=== PATIENT | female | born 1970 | race Caucasian/White ===

== ENCOUNTER 2021-08-07 15:38 | Emergency (ER) | payer OTHER, SELFPAY ==
[2021-08-07 15:42] VITALS: BP 146/78; PULSE 113; RESP 16; TEMP 37.2; O2SAT 100
[2021-08-07 18:40] LABS: Basophils Percent Auto 0.3 % (0.2-1.2); Eosinophils Absolute Auto 0.2 K/mm3 (0-0.3); Eosinophils Percent Auto 1.6 % (0-4.4); Hematocrit 32.8 % (37.0-47.0); Hemoglobin 10.6 g/dL (12.0-15.0); Immature Granulocyte Absolute 0.04 K/mm3 (0.00-0.031); Immature Granulocyte Percent A 0.3 % (0-0.5); Lymphocytes Absolute Auto 1.81 K/mm3 (0.9-3.2); Lymphocytes Percent Auto 15.3 % (18.3-44.2); Mean Corpuscular HGB Conc 32.3 g/dl (32-36); Mean Corpuscular Hemoglobin 27.2 pg (26-34); Mean Corpuscular Volume 84.3 fl (80-100); Mean Platelet Volume 10.9 fl (7.4-10.4); Monocytes Absolute Auto 0.8 K/mm3 (0.1-0.6); Monocytes Percent Auto 6.8 % (2.6-8.5); Neutrophils Absolute Auto 8.9 K/mm3 (1.3-6.7); Neutrophils Percent Auto 75.7 % (45.5-73.1); Platelet Count Result 329 k/mm3 (150-375); Red Blood Count 3.89 M/mm3 (4.2-5.4); White Blood Count 11.8 K/mm3 (4.5-10.0)
[2021-08-07 18:50] LABS: Lactic Acid Reflex 1.2 mmol/L (0.7-2.1)
[2021-08-07 18:51] LABS: Alanine Aminotransferase 22 U/L (4-35); Albumin Level 3.8 g/dL (3.5-5.1); Alkaline Phosphatase 96 U/L (38-126); Anion Gap 11 mmol/L (8-16); Aspartate Amino Transferase 41 U/L (14-36); Bilirubin,Total 0.3 mg/dL (0.2-1.3); Blood Urea Nitrogen 13 mg/dL (7-17); Calcium 8.6 mg/dL (8.4-10.2); Carbon Dioxide 24 mmol/L (22-30); Chloride 103 mmol/L (98-107); Estimated CRCL calculation 130 ml/min; Estimated Glomerular Filt Rate > 60; Glucose 142 mg/dL (65-110); Potassium 3.5 mmol/L (3.4-5.0); Prothrombin Time 13.2 Seconds (11.1-14.7); Sodium 138 mmol/L (137-145)
[2021-08-07 18:52] LABS: Partial Thromboplastin Time 33.2 SECONDS (22.3-36.8)
[2021-08-07 18:58] LABS: NT Pro B Type Natriuretic Pept 124 pg/mL (5-100)
[2021-08-07 19:40] VITALS: BP 132/78; PULSE 71; RESP 17; O2SAT 100
--- NOTE | 2021-08-07 20:49 | ED.SKABFB ---
HPI - Skin/Abscess/Foreign Bdy General Chief complaint: Skin/Abscess/Foreign Body Stated complaint: infection on legs Time Seen by Provider: 08/07/21 18:02 History of Present Illness HPI narrative: Patient is a 51-year-old female who presents ER with concern for infection to her lower extremities. Reports her right leg has become red over the last couple weeks. She reports she has had sores on her legs since 04/2021. She has had waxing waning of edema and redness. 2 weeks ago she took 4 days worth of clindamycin that she got from a friend without improvement. She has had subjective fevers and chills. Related Data Home Medications Medication Instructions Recorded Confirmed buprenorphine-naloxone [Suboxone] 2 film SUBLINGUAL DAILY 08/07/21 08/07/21 ibuprofen [Advil] 400 mg PO Q6H PRN 08/07/21 08/07/21 Allergies Allergy/AdvReac Type Severity Reaction Status Date / Time No Known Allergies Allergy Verified 08/07/21 17:36 Review of Systems Review of Systems: All systems reviewed & are unremarkable except as noted in HPI and below Constitutional: Constitutional: Reports chills, Reports fever(s) and Denies weakness ENT: Denies nasal congestion and Denies sore throat Cardiovascular: Cardiovascular: Denies chest pain, Denies rapid heart rate and Denies radiating jaw, neck or arm pain Respiratory: Respiratory: Denies cough, Denies dyspnea and Denies wheezing Gastrointestinal: Gastrointestinal: Denies abdominal pain, Denies nausea and Denies vomiting Integumentary/Breasts: Skin/Breast: Reports erythema, Reports rash and Reports skin ulcer Neurologic: Denies focal weakness and Denies numbness Exam Narrative: GENERAL: Well-appearing, well-nourished, and in no acute distress. HEAD: Normocephalic, atraumatic. ENT: Mucous membranes moist. CHEST: Clear to auscultation. No respiratory distress. HEART: Regular rate and rhythm. Normal peripheral pulses. ABDOMEN: Soft, nontender, nondistended. EXTREMITIES: Normal range of motion. 2+ edema bilateral lower extremities. SKIN: Warm, dry. Multiple ulcerated wounds to bilateral lower extremities with larger wounds right lateral calf and posterior calf. Right lower extremity demonstrates erythema extending up into the thigh. It is warm and mildly tender. NEURO: Alert and oriented x3. PSYCH: Normal mood and affect. Course Course Emergency Course: Patient felt to have some chronic wounds with secondary infection. Patient could potentially also have DVT. Will be given Lovenox and obtain ultrasound in the morning. IV cefazolin ordered as well as blood cultures. Reevaluation(s) Reevaluation #1: Patient no longer wants to be admitted to the hospital. I discussed with the patient the multiple benefits of being admitted for treatment and evaluation. Patient does not like the fact that she would be treated as COVID-positive since she will not take rapid COVID test for placement in a shared room. She does not like the strict visitor policy of the hospital. She has been informed that she could be risking from blood clot or infection and that disability and loss of leg or possibilities of no treatment. She understands this and has signed AMA paperwork. Date: 08/07/21 Time: 23:50 Vital Signs Vital signs: Vital Signs Temperature 98.9 F 08/07/21 15:42 Pulse Rate 113 H 08/07/21 15:42 Respiratory Rate 16 08/07/21 15:42 Blood Pressure 146/78 H 08/07/21 15:42 Pulse Oximetry 100 08/07/21 15:42 Temperature 98.9 F 08/07/21 15:42 Pulse Rate 101 H 08/07/21 23:14 Respiratory Rate 18 08/07/21 23:14 Blood Pressure 132/82 08/07/21 23:14 Pulse Oximetry 99 08/07/21 23:14 MDM - Skin/Abscess/Foreign Bdy Lab Data Result diagrams: 08/07/21 18:30 08/07/21 18:30 Labs: Lab Results 08/07/21 08/07/21 08/07/21 Range/Units 18:30 18:30 18:30 WBC 11.8 H (4.5-10.0) K/mm3 RBC 3.89 L (4.2-5.4) M/mm3 Hgb 10.6 L (12.0-15.0)
[2021-08-07] MEDS: ceFAZolin SODIUM 1 GM VIAL IV PUSH (21:07)
[2021-08-07] MEDS: WATER, STERILE FOR INJECTION 10 ML VIAL XX (21:07)
[2021-08-07 21:08] VITALS: BP 127/82; PULSE 69; RESP 18; O2SAT 97
[2021-08-07] MEDS: ENOXAPARIN 80 MG/0.8 ML SYRINGE 72 MG SUB-Q (21:38)
[2021-08-07 21:39] VITALS: BP 140/70; PULSE 101; RESP 18; O2SAT 100
[2021-08-07 22:37] LABS: Barbiturate Screen Urine Negative (Negative); Benzodiazepines Screen Urine Negative (Negative)
[2021-08-07 22:41] LABS: Cannabinoid Screen Urine Negative (Negative); Cocaine Screen Urine Negative (Negative); Methadone Screen Urine Negative (Negative); Opiate Screen Urine Negative (Negative); Phencyclidine Screen Urine Negative (Negative)
[2021-08-07 23:05] LABS: Amphetamine Screen Urine Positive (Negative)
[2021-08-07 23:14] VITALS: BP 132/82; PULSE 101; RESP 18; O2SAT 99
--- NOTE | 2021-08-07 23:14 | PC.NURSE ---
Pt declines COVID swab, states she does not want to be admitted due to visitor policy. Pt states wants to sign out AMA. EDP Dr Zhu at bedside.
--- NOTE | 2021-08-07 23:52 | PC.NURSE ---
Pt discussed visitor policy and declines to stay for admit. Discussed as a room and will not require COVID swab. Pt states she will go to another hospital that allows visitors. Pts wounds dressed by this RN. IV removed, signed AMA paper work. EDP made aware.
== END 2021-08-07 23:54 | disposition left against medical advice (07) ==
LOC: ANHED 18:02 → ANH3MEDSUR 08-08 00:20
PROVIDERS: Emergency Provider Emergency Medicine
DX: L97.219 Non-pressure chronic ulcer of right calf with unspecified severity (principal); L03.119 Cellulitis of unspecified part of limb
CPT/HCPCS: 36415; 80053; 80307; 83605; 83880; 85025; 85610; 85730; 87040; 96372; 96374; 99284; J0690; J1650

== ENCOUNTER 2022-07-16 06:34 | Emergency (ER) | payer OTHER, SELFPAY ==
[2022-07-16] VITALS (13 sets, daily range): BP systolic 113–121; BP diastolic 70–81; PULSE 68–107; RESP 14–22; TEMP 36.6–37.2; O2SAT 87–100
--- NOTE | ~2022-07-16 | XR_ITS ---
EXAMINATION: XR chest 2V DATE: 07/16/2022 07:03 INDICATION: 3 days of shortness of breath TECHNIQUE: PA and lateral views of the chest were obtained. COMPARISON: None FINDINGS: Mild bilateral infrahilar bronchial wall thickening. Symmetric bilateral nipple shadows project over the lung bases. No focal airspace opacities, pulmonary edema, pleural effusion or pneumothorax. The c ardiomediastinal silhouette is normal. Mild thoracic kyphosis with moderate spondylosis. IMPRESSION: 1. Mild infrahilar bronchial wall thickening without focal airspace opacities which could be due to b ronchitis or early/viral pneumonia, reactive airway disease/asthma or minimal pulmonary edema. Reviewed, dictated and finalized at location A. ED [employer] IMPRESSION: 1. Mild infrahilar bronchial wall thickening without focal airspace opacities w hich could be due to bronchitis or early/viral pneumonia, reactive airway disea se/asthma or minimal pulmonary edema.
--- NOTE | 2022-07-16 06:46 | ECG_ITS ---
Measurements Intervals [place] Rate: 77 P: 12 W[place]: 138 QRS: 4 QRSD: 74 T: 12 QT: 382 QTc: 434 Interpretive Statements SINUS RHYTHM BASELINE ARTIFACT NONSPECIFIC ST ABNORMALITY BORDERLINE ECG NO PREVIOUS ECG AVAILABLE FOR COMPARISON Electronically Signed On 07-17-2022 16:37:55 [employer] by Rafael Nicholas M.D.
--- NOTE | 2022-07-16 06:48 | ED.SOB ---
HPI - SOB/Dyspnea General Chief Complaint: Shortness of Breath/Dyspnea <Yair Cabral MD - Last Filed: 07/16/22 06:58> Stated Complaint: SOB <Yair Cabral MD - Last Filed: 07/16/22 06:58> Time Seen by Provider: 07/16/22 07:03 <Yair Cabral MD - Last Filed: 07/16/22 06:58> History of Present Illness HPI Narrative: This is a 52-year-old female with past medical history of COPD who presents to the emergency department complaining shortness of breath. She states for the past week she has had flulike symptoms with worsening shortness of breath for the last couple of days. This is accompanied by nonbloody cough. She denies abdominal pain, vomiting or chest pain. <Yair Cabral MD - Last Filed: 07/16/22 06:58> Related Data Home Medications: Home Medications Medication Instructions Recorded Confirmed buprenorphine 8 mg-naloxone 2 mg 2 film sublingual DAILY 08/07/21 08/07/21 sublingual film (Suboxone) ibuprofen 200 mg tablet (Advil) 400 mg PO Q6H PRN Pain 08/07/21 08/07/21 <Yair Cabral MD - Last Filed: 07/16/22 06:58> Allergies/Adverse Reactions: Allergies Allergy/AdvReac Type Severity Reaction Status Date / Time No Known Allergies Allergy Verified 08/07/21 17:36 <Yair Cabral MD - Last Filed: 07/16/22 06:58> Review of Systems Review of Systems: CONSTITUTIONAL: fevers and chills denies fever, chills, or sweats. EYES: Denies visual changes, redness, or discharge. ENT: Upper respiratory congestion and rhinorrhea denies congestion, sore throat, or otalgia. CARDIOVASCULAR: Denies chest pain, palpitations, or edema. RESPIRATORY: Nonbloody cough and dyspnea GASTROINTESTINAL: Denies abdominal pain, nausea, vomiting, or diarrhea. GENITOURINARY: Denies dysuria or hematuria. SKIN: Denies rash or itching. MUSCULOSKELETAL: Denies back pain, joint pain, or myalgia. NEUROLOGIC: Denies headache, numbness, dizziness, or weakness. PSYCHIATRIC: Denies anxiety or depression. <Yair Cabral MD - Last Filed: 07/16/22 06:58> PMFSH Past Medical History Medical History: Medical History (Updated 07/16/22 @ 06:58 by Yair Cabral MD) Appendicitis COPD (chronic obstructive pulmonary disease) Skin ulcer <Yair Cabral MD - Last Filed: 07/16/22 06:58> Surgical History Surgical History: Surgical History (Updated 07/16/22 @ 06:52 by Yair Cabral MD) History of appendectomy <Yair Cabral MD - Last Filed: 07/16/22 06:58> Social History Social History: Social History (Updated 07/16/22 @ 06:52 by Yair Cabral MD) Smoking status: Former smoker Smoking end date: 07/14/22 Alcohol intake: never Substance use: former Substance use type: former substance user and opiates <Yair Cabral MD - Last Filed: 07/16/22 06:58> Exam Narrative: GENERAL: Well-developed, well-nourished, appears fatigued HEAD: Normocephalic, atraumatic. EYES: PERRLA and EOMI. ENT: Poor dentition, nares clear, no rhinorrhea or epistaxis. Mucous membranes moist. Oropharynx without tonsillar hypertrophy exudate or other lesions. NECK: Supple. No adenopathy or masses. No carotid bruits or JVD CHEST: Expiratory wheeze in bilateral posterior lung givens. Intermittent cough with rhonchi. No respiratory distress. No rales HEART: Regular rate and rhythm. No murmur heard. Normal peripheral pulses. ABDOMEN: Soft, nontender, nondistended, normal active bowel sounds. EXTREMITIES: Normal range of motion. Patient refuses exam of lower extremities SKIN: Upper extremities are Warm, dry, no rash NEURO: No focal deficits. Alert and oriented x3. PSYCH: Normal mood and affect. <Yair Cabral MD - Last Filed: 07/16/22 06:58> Course Course Emergency Course: 07:00 - Patient signed out to oncoming physician, Dr. Mcdaniels pending labs and imaging. <Yair Cabral MD - Last Filed: 07/16/22 06:58> 07:00 - Marita
[2022-07-16] MEDS: ALBUTEROL SULFATE NEB 2.5 MG/3 ML INH 5 MG INHALATION (07:05)
[2022-07-16] MEDS: IPRATROPIUM BR 0.02% INH SOLN 0.5 MG/2.5 ML VIAL INHALATION ×3 (07:06→07:44)
[2022-07-16] MEDS: methylPREDNISolone SOD SUCC 125 MG VIAL IV PUSH (07:11)
[2022-07-16 07:17] LABS: Basophils Absolute Auto 0.03 K/mm3 (0.00-0.10); Basophils Percent Auto 0.4 % (0.0-1.0); Eosinophils Absolute Auto 0.38 K/mm3 (0.02-0.50); Eosinophils Percent Auto 5.3 % (1.0-6.0); Hematocrit 37.8 % (35.0-49.0); Hemoglobin 11.8 g/dL (12.0-15.0); Immature Granulocyte Absolute 0.02 K/mm3 (0.00-0.00); Immature Granulocyte Percent A 0.3 % (0.0-0.0); Lymphocytes Absolute Auto 1.65 K/mm3 (1.10-4.50); Lymphocytes Percent Auto 23.2 % (18.0-42.0); Mean Corpuscular HGB Conc 31.2 g/dL (32.0-36.0); Mean Corpuscular Hemoglobin 26.5 pg (27.0-31.0); Mean Corpuscular Volume 84.8 fL (78.0-102.0); Mean Platelet Volume 10.4 fl (9.2-11.8); Monocytes Absolute Auto 0.72 K/mm3 (0.10-0.90); Monocytes Percent Auto 10.1 % (2.0-11.0); Neutrophils Absolute Auto 4.3 K/mm3 (1.7-7.2); Neutrophils Percent Auto 60.7 % (50.0-70.0); Platelet Count Result 217 K/mm3 (150-420); Red Blood Count 4.46 M/mm3 (4.20-5.40); Red Cell Distribution Width 14.4 % (11.6-14.4); White Blood Count 7.1 K/mm3 (4.8-10.8)
[2022-07-16 07:31] LABS: Alanine Aminotransferase 16 U/L (14-59); Albumin Level 3.3 g/dL (3.4-5.0); Alkaline Phosphatase 87 U/L (46-116); Anion Gap 3 mmol/L (8-16); Aspartate Amino Transferase 13 U/L (15-37); Bilirubin,Total 0.1 mg/dL (0.00-1.00); Blood Urea Nitrogen 17 mg/dL (7-18); Calcium 8.7 mg/dL (8.5-10.1); Carbon Dioxide 28 mmol/L (21-32); Chloride 101 mmol/L (98-108); Estimated Glomerular Filt Rate > 60; Glucose 113 mg/dL (70-99); Osmolality Calculated 276 mOsm/kg (285-295); Potassium 3.6 mmol/L (3.5-5.1); Sodium 132 mmol/L (136-145)
[2022-07-16] MEDS: DOXYCYCLINE HYCLATE 100 MG TABLET PO (09:34)
== END 2022-07-16 09:40 | disposition home or self-care (01) ==
PROVIDERS: Preventive Medicine Aerospace Medicine; Emergency Provider Family Medicine
DX: J44.1 Chronic obstructive pulmonary disease with (acute) exacerbation (principal); Z87.891 Personal history of nicotine dependence
CPT/HCPCS: 36415; 71046; 80053; 85025; 93005; 96374; 99284; A9270; J2930

== ENCOUNTER 2022-08-28 01:24 | Emergency (ER) | payer OTHER, SELFPAY ==
--- NOTE | ~2022-08-28 | XR_ITS ---
Clinical Indication: Shortness of breath PA and lateral views of the chest: Comparison: 07/16/2022 Findings: Bibasilar nipple shadows noted. The lungs are otherwise clear, without evidence of focal co nsolidation or pleural effusion. Cardiomediastinal silhouette is within normal limits. Bones and sof t tissues are unremarkable. Impression: Normal chest. Reviewed, dictated and finalized at location . [employer] Impression: Normal chest.
[2022-08-28 01:35] VITALS: BP 108/71; PULSE 90; RESP 20; TEMP 36.8; O2SAT 94; O2SAT 99
--- NOTE | 2022-08-28 01:35 | ED.SOB ---
HPI - SOB/Dyspnea General Chief Complaint: Shortness of Breath/Dyspnea Stated Complaint: SOB Time Seen by Provider: 08/28/22 01:30 Source: patient and RN notes reviewed Mode of arrival: ambulatory Limitations: no limitations History of Present Illness MD elicited complaint: shortness of breath Pertinent past history: COPD and asthma Onset (ago): day(s) (2) Timing: intermittent and progressively worsening Severity: similar to previous episodes Exacerbating factors: exertion and coughing Relieving factors: nothing Known history of: COPD and asthma Associated symptoms: denies other symptoms Treatment prior to arrival: bronchodilator (MDI) Related Data Home oxygen amount: none Home Medications Medication Instructions Recorded Confirmed buprenorphine 8 mg-naloxone 2 mg 2 film sublingual DAILY 08/07/21 08/28/22 sublingual film (Suboxone) ibuprofen 200 mg tablet (Advil) 400 mg PO Q6H PRN Pain 08/07/21 08/28/22 Allergies Allergy/AdvReac Type Severity Reaction Status Date / Time No Known Allergies Allergy Verified 08/07/21 17:36 Review of Systems Review of Systems: All systems reviewed & are unremarkable except as noted in HPI and below PMFSH Past Medical History Medical History Appendicitis COPD (chronic obstructive pulmonary disease) Skin ulcer Surgical History Surgical History History of appendectomy Social History Social History (Updated 08/28/22 @ 01:40 by Emerson Juares MD) Smoking packs per day: 0.5 Smoking cigarettes per day: 10.0 Smoking status: Current every day smoker Tobacco type: cigarettes Alcohol intake: never Substance use: former Substance use type: former substance user and opiates Exam Const: General: healthy appearing, no acute distress and alert Nutritional Appearance: well nourished Orientation/consciousness: patient oriented x3 Limitations: no limitations HENMT: Head: normal to inspection Ears: external ears normal Face/Nose/Sinus: Normal external nose present Face and sinus: normal facial exam Mouth: Yes moist mucous membranes Eyes: Conjunctivae: conjunctivae normal Pupils: Equal, round and reactive pupils present EOM: EOMs intact bilaterally Neck: Neck: normal visual inspection Resp: Auscultation: rhonchi left upper and right upper and wheezes expiratory wheezes, inspiratory wheezes and throughout Cardio: Rate: regular rate Rhythm: regular rhythm GI: GI Palp: Yes Soft to palpation and No Tenderness to palpation present (GI) Auscultation: normal bowel sounds Back/Spine/Pelvis: Cervical Spine: cervical ROM normal Thoracic/Lumbar Spine: thoraco-lumbar ROM normal Skin: General skin exam: normal color Rashes: no rashes Neuro: General: patient oriented x3, moves all extremities, no focal motor deficits and CN's II-XI intact bilaterally Speech: normal speech Gait exam (Neuro): Normal gait present Extrem: General: normal to inspection and no clubbing, cyanosis or edema Psych: Mental Status: mental status grossly normal Affect: normal affect Attitude: cooperative Course Vital Signs Vital signs: Vital Signs Temperature 36.8 C 08/28/22 01:35 Pulse Rate 90 08/28/22 01:35 Respiratory Rate 20 08/28/22 01:35 Blood Pressure 108/71 08/28/22 01:35 Pulse Oximetry 99 08/28/22 01:35 Oxygen Delivery Room Air 08/28/22 01:35 Temperature 36.7 C 08/28/22 03:55 Pulse Rate 90 08/28/22 03:55 Respiratory Rate 20 08/28/22 03:55 Blood Pressure 110/88 08/28/22 03:55 Pulse Oximetry 95 08/28/22 03:55 Oxygen Delivery Room Air 08/28/22 03:55 MDM - SOB/Dyspnea Differential Diagnosis Differential diagnosis: Likely acute exacerbation of chronic obstructive airways disease, congestive heart failure and community acquired pneumonia Lab Data Attestation: I reviewed the patient's lab results. 08/28/22 02:06
[2022-08-28] MEDS: methylPREDNISolone SOD SUCC 125 MG VIAL IV PUSH (01:45)
[2022-08-28] MEDS: IPRATROPIUM 0.5 MG/ALBUTEROL SULFATE 2.5 MG AMPUL.NEB 3 ML INHALATION (01:49)
[2022-08-28 01:50] VITALS: PULSE 93; RESP 16; O2SAT 97
[2022-08-28 01:51] VITALS: PULSE 93; RESP 16; O2SAT 97
[2022-08-28 02:00] VITALS: BP 112/77
[2022-08-28 02:01] VITALS: O2SAT 100
[2022-08-28 02:14] LABS: Basophils Absolute Auto 0.06 K/mm3 (0.00-0.10); Basophils Percent Auto 0.9 % (0.0-1.0); Eosinophils Absolute Auto 0.48 K/mm3 (0.02-0.50); Eosinophils Percent Auto 6.9 % (1.0-6.0); Hematocrit 38.5 % (35.0-49.0); Immature Granulocyte Absolute 0.08 K/mm3 (0.00-0.00); Immature Granulocyte Percent A 1.1 % (0.0-0.0); Lymphocytes Absolute Auto 2.09 K/mm3 (1.10-4.50); Lymphocytes Percent Auto 29.9 % (18.0-42.0); Mean Corpuscular HGB Conc 31.2 g/dL (32.0-36.0); Mean Corpuscular Hemoglobin 26.6 pg (27.0-31.0); Mean Corpuscular Volume 85.4 fL (78.0-102.0); Mean Platelet Volume 11.1 fl (9.2-11.8); Monocytes Absolute Auto 0.63 K/mm3 (0.10-0.90); Neutrophils Absolute Auto 3.7 K/mm3 (1.7-7.2); Neutrophils Percent Auto 52.2 % (50.0-70.0); Platelet Count Result 252 K/mm3 (150-420); Red Blood Count 4.51 M/mm3 (4.20-5.40); Red Cell Distribution Width 13.8 % (11.6-14.4)
[2022-08-28 02:35] LABS: Alanine Aminotransferase 19 U/L (14-59); Anion Gap 7 mmol/L (8-16); Aspartate Amino Transferase 15 U/L (15-37); Bilirubin,Total 0.2 mg/dL (0.00-1.00); Blood Urea Nitrogen 14 mg/dL (7-18); Calcium 8.3 mg/dL (8.5-10.1); Carbon Dioxide 29 mmol/L (21-32); Chloride 105 mmol/L (98-108); Estimated CRCL calculation 55 ml/min; Estimated Glomerular Filt Rate > 60; Glucose 117 mg/dL (70-99); Osmolality Calculated 293 mOsm/kg (285-295); Potassium 3.9 mmol/L (3.5-5.1); Sodium 141 mmol/L (136-145)
[2022-08-28 02:36] LABS: Albumin Level 3.2 g/dL (3.4-5.0); Alkaline Phosphatase 98 U/L (46-116); Total Protein 7.4 g/dL (6.4-8.2)
[2022-08-28 02:41] LABS: HCO3 ABG 26.8 mmol/L (23-29); PCO2 ABG 42.6 mmHg (35-45); PO2 ABG 59.7 mmHg (80-90); pH ABG 7.42 (7.35-7.45)
[2022-08-28 02:42] LABS: Oxygen Content ABG 16.6 %vol (16.0-22.0)
[2022-08-28 02:43] LABS: Device ROOM AIR; Modified Allen's Test Pass; Oxyhemoglobin 90.8 % (94-100); Site Drawn RIGHT RADIAL
[2022-08-28 03:55] VITALS: BP 110/88; PULSE 90; RESP 20; TEMP 36.7; O2SAT 95
== END 2022-08-28 03:57 | disposition home or self-care (01) ==
PROVIDERS: Emergency Provider Emergency Medicine
DX: J44.1 Chronic obstructive pulmonary disease with (acute) exacerbation (principal); F17.210 Nicotine dependence, cigarettes, uncomplicated; Z79.1 Long term (current) use of non-steroidal anti-inflammatories (NSAID)
CPT/HCPCS: 36415; 36600; 71046; 80053; 82805; 83735; 85025; 94640; 96374; 99284; J2930